=== PATIENT | female | born 1945 | race Caucasian/White ===

== ENCOUNTER 2021-01-09 12:31 | Outpatient (CLI) | payer MEDICARE, OTHER | END 2021-01-09 12:32 | disposition home or self-care (01) | LOC: CSHMRI 12:31 | PROVIDERS: ATTEND Otolaryngology Plastic Surgery within the Head & Neck | DX: H90.5 Unspecified sensorineural hearing loss (principal); R42 Dizziness and giddiness; H74.8X3 Other specified disorders of middle ear and mastoid, bilateral; I77.9 Disorder of arteries and arterioles, unspecified | CPT/HCPCS: 70553 ==